=== PATIENT | male | born 1995 | race Caucasian/White ===

== ENCOUNTER → 2018-08-30 | Outpatient (CLI) | payer OTHER ==
--- NOTE | 2018-08-30 14:06 | RADIOLOGY IMAGING REPORT ---
FACILITY: [facility] [place] PATIENT NAME: Ramu Rosales : 1995 MR: [id number] V: [id number] EXAM DATE: ORDERING PHYSICIAN: RENY QUIROZ TECHNOLOGIST: [place] [facility] [place] Patient: Ramu Rosales : 1995 Visit/Account:[id number] Date of Sevice: 08/30/2018 Exam type: CHEST PA LAT History: Cough and shortness of breath Comparison: None. Findings: The lungs are free of acute effusions, infiltrates or edema. There is no evidence of a pneumothorax or pneumomediastinum. The cardiac silhouette is normal in size. The trachea is in midline. IMPRESSION: 1. No acute cardiopulmonary process is seen Report Dictated By: Hodan Younger MD at 08/30/2018 2:01 PM Report E-Signed By: Hodan Younger MD at 08/30/2018 2:01 PM WSN:[id number]
== END ==
LOC: RAD 11:18
PROVIDERS: ATTEND Emergency Medicine Sports Medicine
DX: R05 Cough (principal); R06.02 Shortness of breath
CPT/HCPCS: 71046